=== PATIENT | female | born 1950 | race Caucasian/White ===

== ENCOUNTER 2022-03-08 18:32 | Inpatient (IN) | payer BC ==
[~2022-03-08] VITALS: Ht 165.1 cm; Wt 59.0 kg
[~2022-03-08 18:32] MED LIST: DOCU-141 PO; HYDR-3326 PO; LIPITOR; METF-440 PO
--- NOTE | 2022-03-08 20:30 | NUR ---
Patient arrived at the ER with complain of SOB and cough.
[2022-03-08 21:30] LABS: *BILIRUBIN,URIN NEGATIVE (NEGATIVE); *CLARITY,URINE CLEAR (CLEAR); *COLOR,URINE YELLOW (YELLOW); *KETONES,URINE NEGATIVE (NEGATIVE); *UROBILINOGEN,URINE 0.2 E.U./dl (NORMAL); LEUKOCYTE ESTERASE ,URINE 2+ (NEGATIVE); NITRITE, URINE NEGATIVE (NEGATIVE); PH,URINE 6.5 (5.0-8.0); UGLUCOSE NEGATIVE (NEGATIVE)
[2022-03-08 21:38] LABS: *BLOOD, URINE TRACE (NEGATIVE)
[2022-03-08 21:47] LABS: HEMATOCRIT 41.6 % (31.2-41.9); MEAN CORPUSCULAR HEMOGLOBIN 30.5 uug (24.7-32.8); MEAN CORPUSCULAR VOLUME 91.5 fL (75.5-95.3); PLATELET COUNT (AUTO) 235 K/uL (179-408)
[2022-03-08 22:00] LABS: RBC,URINE 0-3 /HPF (0-3); WBC,URINE 20-50 /HPF (0-3)
[2022-03-08] MEDS ORDERED: ACETAMINOPHEN ES 500 MG TABLET PO ONE (22:00)
[2022-03-08 22:01] LABS: BACTERIA,URINE FEW /HPF (NONE SEEN); SQUAMOUS EPITHELIAL CELL,UR FEW /HPF (NONE SEEN)
[2022-03-08 22:05] LABS: CARBON DIOXIDE 27 mmol/L (21-32); CHLORIDE 102 mmol/L (98-107); CREATININE 1.7 mg/dL (0.6-1.3); GLUCOSE 125 mg/dL (74-106); POTASSIUM 3.7 mmol/L (3.5-5.1); UREA NITROGEN, BLOOD 19 mg/dL (7-18)
[2022-03-08] MEDS ORDERED: AZITHROMYCIN IV 500 MG in IV DEXTROSE 5% 250 ML IV ONE (22:15)
[2022-03-08] MEDS ORDERED: IBUPROFEN 400 MG TABLET PO ONE (22:15)
[2022-03-08 22:16] LABS: ALANINE AMINOTRANSFERASE 35 U/L (14-59); ALKALINE PHOSPHATASE 79 U/L (50-136); ASPARTATE AMINOTRANSFERASE 14 U/L (15-37); BILIRUBIN,DIRECT 0.1 mg/dL (0.0-0.2); BILIRUBIN,TOTAL 0.4 mg/dL (0.2-1.0); TOTAL PROTEIN, SERUM 7.4 g/dL (6.4-8.2)
[2022-03-08] MEDS ORDERED: ACETAMINOPHEN ES 500 MG TABLET ONE (22:17)
[2022-03-08] MEDS ORDERED: IBUPROFEN 400 MG TABLET ONE (22:18)
[2022-03-08] MEDS ORDERED: AZITHROMYCIN 500MG/ D5W 250ML IVPB **ER PYXIS ONLY IV ONE (22:18)
[2022-03-08] MEDS ORDERED: LORAZEPAM 2 MG/1 ML VIAL IV ONE (22:30)
[2022-03-08] MEDS ORDERED: HYDROMORPHONE 1 MG/1 ML DISP.SYRIN IV ONE (22:30)
[2022-03-08] MEDS ORDERED: ONDANSETRON 4 MG/2 ML VIAL IV ONE (22:30)
[2022-03-08] MEDS ORDERED: HYDROMORPHONE 1 MG/1 ML DISP.SYRIN ONE (22:34)
[2022-03-08] MEDS ORDERED: ONDANSETRON 4 MG/2 ML VIAL ONE (22:34)
[2022-03-08] MEDS ORDERED: LORAZEPAM 2 MG/1 ML VIAL ONE (22:35)
[2022-03-08] MEDS ORDERED: ENOXAPARIN SODIUM 60 MG/0.6 ML DISP.SYRIN SQ ONE ×2 (22:42→22:45)
--- NOTE | 2022-03-08 23:10 | NUR ---
Back from CT.
[2022-03-08] MEDS ORDERED: ASPI81TA31 PO (23:23)
[2022-03-08] MEDS ORDERED: ATOR40TA PO (23:23)
[2022-03-08] MEDS ORDERED: OMEP40CA21 PO (23:23)
[2022-03-08] MEDS ORDERED: SERT25TA PO (23:23)
[2022-03-08] MEDS ORDERED: METF-440 PO (23:23)
[2022-03-08] MEDS ORDERED: [UNRECOGNIZED DRUG - REMARK] PO (23:23)
--- NOTE | 2022-03-09 01:43 | NUR ---
Epic panel call placed, spoke to Chuy, stated she will get a hold of Dr. Zapata for admitting.
--- NOTE | 2022-03-09 01:51 | NUR ---
Dr. Aguilar on panel call with Dr. Zapata. Patient accepted for admission to Telemetry unit, Dx R/O PE, nausea and abdominal pain.
[2022-03-09] MEDS ORDERED: DEXTROSE 50% 50 ML DISP.SYRIN IV PRN (02:00)
[2022-03-09] MEDS ORDERED: hydrALAZINE HCL 20 MG/1 ML VIAL IV PRN (02:00)
[2022-03-09] MEDS ORDERED: ACETAMINOPHEN 325 MG TABLET PO PRN (02:00)
[2022-03-09] MEDS ORDERED: INSULIN REGULAR, HUMAN 300 UNIT/3 ML VIAL SQ PRN (02:00)
--- NOTE | 2022-03-09 04:10 | NUR ---
ADMITTED TO MED SURG FLOOR UNDER THE CARE OF Samy FERRARI. PATIENT ALERT ORIENTED, ABDOMEN SOFT, NO SOB NO CHEST PAIN, COMPLAIN OF LITTLE HEADACHES. PATIENT HAS DRY COUGH, CONTINENT OF BLADDER, HAD BM YESTERDAY, NPO PER ORDER OF MD, NO COMPLAIN OF ABDOMINAL PAIN AT THIS TIME, CONT TO MONITOR.
--- NOTE | 2022-03-09 04:15 | NUR ---
Pt. admitted to telemtry unit, room 318, under care of Dr. Zapata. Report given to Mansi Rivera. Belongings List completed
[2022-03-09 04:47] VITALS: BP 140/60
[2022-03-09] MEDS: IV NS 1000 ML 1,000 ML IV SCH ×2 (04:50→14:48)
[2022-03-09] MEDS ORDERED: CEFEPIME HCL 1 G in IV DEXTROSE 5% 50 ML IV SCH (06:00)
--- NOTE | 2022-03-09 06:14 | NUR ---
MAXIPINE 1GM IV NOT GIVEN, MEDS RN TENT WORKER UNABLE TO PROVIDE MEDS, WILL ENDORSE TO NEXT SHIFT.
[2022-03-09] MEDS: BLOOD SUGAR DIAGNOSTIC 1 EACH STRIP VI SCH ×4 (06:49→21:21)
[2022-03-09] MEDS: PANTOPRAZOLE SODIUM 40 MG TABLET.DR PO SCH (06:50)
[2022-03-09 07:41] LABS: CARBON DIOXIDE 28 mmol/L (21-32); CHLORIDE 106 mmol/L (98-107); CREATININE 1.6 mg/dL (0.6-1.3); GLUCOSE 100 mg/dL (74-106); POTASSIUM 3.8 mmol/L (3.5-5.1); UREA NITROGEN, BLOOD 27 mg/dL (7-18)
[2022-03-09 08:00] VITALS: BP 120/64
[2022-03-09] MEDS ORDERED: METFORMIN HCL 500 MG TABLET PO SCH ×2 (08:00)
[2022-03-09] MEDS ORDERED: ENOXAPARIN SODIUM 60 MG/0.6 ML DISP.SYRIN SQ SCH (09:00)
[2022-03-09] MEDS ORDERED: DIATR MEGLU/DIATRIZOATE SODIUM 30 ML BOTTLE ONE (09:01)
[2022-03-09] MEDS: ASPIRIN 81 MG TAB.CHEW PO SCH (09:11)
[2022-03-09] MEDS: CEFEPIME HCL 1 G in IV DEXTROSE 5% 50 ML IV SCH ×2 (09:22→21:02)
[2022-03-09] MEDS: ENOXAPARIN SODIUM 60 MG/0.6 ML DISP.SYRIN SQ SCH ×2 (10:30→21:21)
[2022-03-09] MEDS: MORPHINE SULFATE 2 MG/1 ML DISP.SYRIN IVP PRN ×2 (11:10→17:09)
[2022-03-09 12:03] VITALS: BP 113/57
[2022-03-09 15:59] VITALS: BP 116/68
[2022-03-09 16:00] VITALS: BP 116/68
--- NOTE | 2022-03-09 19:35 | NUR ---
Patient her room dangle feet, daughter at bedside, patient complain of headaches, left back thru buttock and thigh, Dr Taylor changed patient pain meds to stronger one, cont on NPO, no nause no vomiting noted, cont to monitor.
[2022-03-09 20:00] VITALS: BP 115/55
[2022-03-09] MEDS: HYDROMORPHONE 1 MG/1 ML DISP.SYRIN IV PRN (21:01)
[2022-03-09] MEDS: ATORVASTATIN 40 MG TABLET PO SCH (21:01)
--- NOTE | 2022-03-09 22:01 | NUR ---
Notify Dr Taylor that patient requesting Zolof 25 po hs for derpression with order.
[2022-03-09] MEDS: SERTRALINE HCL 50 MG TABLET PO SCH (23:06)
--- NOTE | 2022-03-10 00:54 | NUR ---
Patient has episode of has episode of needy behavior, wanted more attention than usual, given all patient request, clean linen, panties, sanitary pad, given pain meds claimed medication effective, but asking medication but not due yet, has episode of medication seeking behavior. patient voiding, assisted to toilet, cont to monitor.
[2022-03-10] MEDS: HYDROMORPHONE 1 MG/1 ML DISP.SYRIN IV PRN ×2 (01:04→11:01)
[2022-03-10] MEDS: ONDANSETRON 4 MG/2 ML VIAL IV PRN ×3 (01:10→21:21)
[2022-03-10 04:00] VITALS: BP 117/62
--- NOTE | 2022-03-10 05:43 | NUR ---
Patient sleep intermittently, cont on pain management, pain on left and right head down thru her back, ice pack was provided with help with the pain, alert oriented, able to make needs know, given x1 zofran for nausea with help after 30 minutes. cont to monitor.
[2022-03-10] MEDS: PANTOPRAZOLE SODIUM 40 MG TABLET.DR PO SCH (06:34)
[2022-03-10 07:02] LABS: HEMATOCRIT 37.9 % (31.2-41.9); MEAN CORPUSCULAR HEMOGLOBIN 31.4 uug (24.7-32.8); MEAN CORPUSCULAR VOLUME 91.8 fL (75.5-95.3); PLATELET COUNT (AUTO) 215 K/uL (179-408)
[2022-03-10] MEDS: BLOOD SUGAR DIAGNOSTIC 1 EACH STRIP VI SCH (07:14)
[2022-03-10 07:38] LABS: ALANINE AMINOTRANSFERASE 32 U/L (14-59); ALKALINE PHOSPHATASE 65 U/L (50-136); ASPARTATE AMINOTRANSFERASE 24 U/L (15-37); BILIRUBIN,TOTAL 0.4 mg/dL (0.2-1.0); CARBON DIOXIDE 24 mmol/L (21-32); CHLORIDE 107 mmol/L (98-107); CHOLESTEROL 239 mg/dL (<200); CREATININE 1.4 mg/dL (0.6-1.3); GLUCOSE 129 mg/dL (74-106); HDL CHOLESTEROL 56 mg/dL (40-60); MAGNESIUM 1.9 mg/dL (1.8-2.4); PHOSPHOROUS 4.2 mg/dL (2.5-4.9); POTASSIUM 3.9 mmol/L (3.5-5.1); TOTAL PROTEIN, SERUM 6.6 g/dL (6.4-8.2); TRIGLYCERIDES 326 MG/DL (30-150); UREA NITROGEN, BLOOD 22 mg/dL (7-18)
[2022-03-10 07:43] LABS: THYROID STIMULATING HORMONE 1.555 mIU/mL (0.358-3.740)
[2022-03-10] MEDS: ASPIRIN 81 MG TAB.CHEW PO SCH ×2 (09:00→09:39)
[2022-03-10] MEDS: CEFEPIME HCL 1 G in IV DEXTROSE 5% 50 ML IV SCH (09:40)
[2022-03-10] MEDS: ENOXAPARIN SODIUM 60 MG/0.6 ML DISP.SYRIN SQ SCH (09:42)
[2022-03-10 12:00] VITALS: BP 100/48
[2022-03-10 16:00] VITALS: BP 108/58
[2022-03-10 20:00] VITALS: BP 108/58
[2022-03-10] MEDS ORDERED: CEFTRIAXONE 1 G in IV DEXTROSE 5% 50 ML IV SCH (21:00)
[2022-03-10] MEDS: ATORVASTATIN 40 MG TABLET PO SCH (21:22)
[2022-03-10] MEDS: SERTRALINE HCL 50 MG TABLET PO SCH (21:22)
[2022-03-11] VITALS: BP 108/58
[2022-03-11] MEDS ORDERED: CEFTRIAXONE /D5W 50ML IVPB **ER PYXIS IV ONE (00:44)
[2022-03-11 04:00] VITALS: BP 117/53
[2022-03-11] MEDS: PANTOPRAZOLE SODIUM 40 MG TABLET.DR PO SCH (06:03)
[2022-03-11 07:08] LABS: HEMATOCRIT 34.7 % (31.2-41.9); MEAN CORPUSCULAR HEMOGLOBIN 31.6 uug (24.7-32.8); MEAN CORPUSCULAR VOLUME 90.6 fL (75.5-95.3); PLATELET COUNT (AUTO) 203 K/uL (179-408)
[2022-03-11 07:31] LABS: BILIRUBIN,TOTAL 0.3 mg/dL (0.2-1.0); CREATININE 1.3 mg/dL (0.6-1.3); MAGNESIUM 1.8 mg/dL (1.8-2.4); PHOSPHOROUS 3.3 mg/dL (2.5-4.9); POTASSIUM 3.7 mmol/L (3.5-5.1); TOTAL PROTEIN, SERUM 5.9 g/dL (6.4-8.2)
[2022-03-11 08:00] VITALS: BP 127/72
[2022-03-11] MEDS: SERTRALINE HCL 50 MG TABLET PO SCH ×4 (08:20→09:45)
[2022-03-11] MEDS: ASPIRIN 81 MG TAB.CHEW PO SCH (08:20)
[2022-03-11] MEDS ORDERED: GLUCERNA SHAKE 237 ML CAN PO SCH (10:45)
--- NOTE | 2022-03-11 11:24 | NUR ---
Pt. has routine medication zoloft 1 tab at 9:00am but pt. refused to take and said it should be half tab. Communicated with pharmacy and changed the order to half tab. When half tab Zoloft offered pt. again refused to take.
[2022-03-11] MEDS ORDERED: CEPH500C2 PO (11:27)
[2022-03-11 12:00] VITALS: BP_SYST 125; BP_SYST 132; BP_DIAS 70
--- NOTE | 2022-03-11 12:45 | NUR ---
Pt. discharged home and was picked up by her daughter. Noted resident at her baseline mentation. Noted to be stable upon the discharge. No acute distress noted. Belonging returned to patient.
== END 2022-03-11 12:45 | disposition home or self-care (01) | DRG 689 ==
LOC: ER 18:35 → TELE3 23:05 → MEDSURG3 03-09 04:46
PROVIDERS: ADMIT Internal Medicine; ATTEND Internal Medicine
DX: N39.0 Urinary tract infection, site not specified (principal); N17.0 Acute kidney failure with tubular necrosis; K56.7 Ileus, unspecified; R10.9 Unspecified abdominal pain; E11.9 Type 2 diabetes mellitus without complications; E78.5 Hyperlipidemia, unspecified; E86.0 Dehydration; G47.00 Insomnia, unspecified; Z79.84 Long term (current) use of oral hypoglycemic drugs; Z88.2 Allergy status to sulfonamides; R53.1 Weakness; F32.A Depression, unspecified; K44.9 Diaphragmatic hernia without obstruction or gangrene; Z20.822 Contact with and (suspected) exposure to COVID-19; B96.89 Other specified bacterial agents as the cause of diseases classified elsewhere; M54.30 Sciatica, unspecified side; R06.00 Dyspnea, unspecified; E04.2 Nontoxic multinodular goiter; Z86.718 Personal history of other venous thrombosis and embolism; Z95.828 Presence of other vascular implants and grafts
CPT/HCPCS: 36415; 71045; 71270; 74018; 74250; 76770; 83735; 84100; 84443; 84484; 85025; 86140; 87040; 87400; 93005; A4663; A9150; G0378; J0456; J0692; J0696; J1170; J1650; J1815; J2060; J2270; J2405; J7040; Q9963